=== PATIENT | female | born 1970 | race Two or more races ===

== ENCOUNTER 2024-10-25 08:04 | Emergency (ER) | payer MEDICAID, SELFPAY ==
[2024-10-25 08:22] VITALS: BP 143/70; PULSE 74; RESP 20; TEMP 36.7; O2SAT 100; BMI 38.7
--- NOTE | 2024-10-25 08:24 | XR_ITS ---
EXAMINATION: CT abdomen pelvis wo con ORDERING PROVIDER: KIESHA Roe HISTORY: Right flank pain x1 day. TECHNIQUE: Without intravenous or oral contrast, CT was used in the volumetric, helical imaging acquisition of the abdomen and pelvis with 2-D and 3-D reformats generated on a separate workstation and submitted for interpretation. Institutional dose reducing protocols were utilized. Evaluation of hollow viscus and solid viscera is limited secondary to lack of intravenous and oral contrast. RADIATION DOSE: DLP 1103 mGy-cm COMPARISON: 08/10/2017, CT abdomen pelvis. FINDINGS: LIVER: No focal lesion identified. Questionable micronodularity. BILIARY: Cholecystectomy clips. PANCREAS: Mild fatty atrophy. SPLEEN: Incidental anterior inferior splenule. ADRENAL GLANDS: Unremarkable. KIDNEYS: Mild bilateral perinephric fat stranding. Mild right pelvic caliectasis. Left greater than right renal atrophy. Significant left-sided cortical atrophy. No obstructive nephrolithiasis identified. URETERS: Nondilated. No ureterolithiasis seen. BLADDER: Antidependent air in the bladder. Trace fat stranding around the bladder. CT provides limited evaluation of the urinary bladder. HOLLOW VISCUS: Scattered colonic diverticula without surrounding inflammatory changes. Moderate colonic stool burden. Appendix nondilated. VASCULATURE: 2 right-sided renal arteries. Limited evaluation without contrast. Mild aortoiliac calcific atherosclerotic disease. Partially visualized cardiac leads. Heavy coronary artery calcific atherosclerotic disease. Unchanged mild fat stranding about the distal right ovarian vein. PELVIS: Pelvic phleboliths. LYMPH NODES: Limited evaluation without contrast. Grossly unremarkable. LUNG BASES: Scarring versus atelectasis partially evaluated along the minor fissure. BONES: Moderate degenerative changes with multilevel degenerative disc disease. Lower lumbar spine facet arthrosis. Multilevel vacuum disc phenomenon. ABDOMINAL WALL: Large fat filled umbilical hernia with 4.3 cm neck. Ventral lower abdominal/pelvic scar. IMPRESSION: 1. Fat stranding about the bilateral kidneys and bladder. Query urinary tract infection. 2. Small amount of antidependent air in the bladder. This could be from recent manipulation, infection, or other etiology. Recommend correlation with history and physical exam. 3. Mild right-sided hydronephrosis without obstructive stone identified. This could be from recently passed urolith. 4. Suggestion of micronodularity to the liver. Query underlying liver disease. 5. Colonic diverticulosis without CT findings for diverticulitis. 6. Large fat filled umbilical hernia.
--- NOTE | 2024-10-25 08:25 | PD.EDABDPN ---
ED Abdominal Pain RME/HPI General Chief Complaint: Hip Injury/Pain Stated complaint: SEVERE R) HIP PAIN X 2 DAYS Time seen by provider: 10/25/24 08:09 Arrival date/time: 10/25/24 08:04 54-year-old female with a history of hypertension, hyperlipidemia, type 2 diabetes presents to the emergency room with a chief complaint of right-sided flank pain and right lower abdominal pain x 2 days Source: patient Mode of arrival: ambulatory Limitations: no limitations Related Data Home Medications ?Medication ?Instructions ?Recorded ?Confirmed aspirin 81 mg chewable tablet 81 mg PO 1XD 02/17/24 02/17/24 evolocumab 140 mg/mL subcutaneous 140 mg subcut QWEEK 02/17/24 02/17/24 syringe (Repatha Syringe) finerenone 20 mg tablet (Kerendia) 20 mg PO QDAY 02/17/24 02/17/24 furosemide 40 mg tablet 40 mg PO 1XD 02/17/24 02/17/24 insulin glargine 100 unit/mL (3 50 unit subcut HS 02/17/24 02/17/24 mL) subcutaneous pen (Basaglar KwikPen U-100 Insulin) nitroglycerin 0.4 mg sublingual 0.4 mg buccal 1XD 02/17/24 02/17/24 tablet sacubitril 24 mg-valsartan 26 mg 1 tab PO BID 02/17/24 02/17/24 tablet (Entresto) sitagliptin phosphate 50 50 - 1,000 tab PO 2XD 02/17/24 02/17/24 mg-metformin 1,000 mg tablet (Janumet) Previous Rx's ?Medication ?Instructions ?Recorded amlodipine 5 mg tablet 10 mg (2 x 5 mg) PO QDAY #30 tabs 02/18/24 apixaban 2.5 mg tablet (Eliquis) 5 mg (2 x 2.5 mg) PO BID #60 tabs 02/18/24 atorvastatin 20 mg tablet 40 mg (2 x 20 mg) PO HS #30 tabs 02/18/24 carvedilol 3.125 mg tablet 3.125 mg PO BIDWM #60 tabs 02/18/24 Allergies Allergy/AdvReac Type Severity Reaction Status Date / Time Penicillins Allergy Severe Swelling Verified 10/25/24 08:11 Review of Systems Review of Systems Systems Reviewed: All systems reviewed, normal except as documented Constitutional Constitutional: Reports system reviewed and no additional complaints, except as documented, Denies fatigue, Denies fever(s), Denies headache(s) and Denies weakness Eyes Eyes: Reports system reviewed and no additional complaints, except as documented, Denies blurry vision and Denies change in vision ENT Ears, Nose, Mouth, and Throat: Reports system reviewed and no additional complaints, except as documented, Denies otalgia, Denies headache(s), Denies nasal congestion, Denies throat swelling and Denies vertigo Cardiovascular Cardiovascular: Reports system reviewed and no additional complaints, except as documented, Denies chest pain, Denies dyspnea and Denies dyspnea on exertion Respiratory Respiratory: Reports system reviewed and no additional complaints, except as documented, Denies chest congestion, Denies cough, Denies dyspnea, Denies dyspnea on exertion and Denies wheezing Gastrointestinal Gastrointestinal: Reports system reviewed and no additional complaints, except as documented, Reports abdominal pain, Reports cramping, Reports nausea and Denies vomiting Genitourinary Genitourinary: Reports system reviewed and no additional complaints, except as documented Musculoskeletal Musculoskeletal: Reports system reviewed and no additional complaints, except as documented and Denies back pain Integumentary/Breasts Skin/Breast: Reports system reviewed and no additional complaints, except as documented and Denies wounds Neurologic Neurologic: Reports system reviewed and no additional complaints, except as documented, Denies confusion, Denies headache(s), Denies lack of coordination, Denies vertigo and Denies weakness Psychiatric Psychiatric: Reports system reviewed and no additional complaints, except as documented, Denies anxiety, Denies confusion, Denies depression, Denies paranoia, Denies suicidal ideation and Denies tactile hallucinations Endocrine Endocrine: Reports system reviewed and no additional complaints, except as documented and Denies fatigue Hematologic/Lymphatic Hematologic/Lymphatic: Reports system reviewed and no additional complaints, except as documented and Denies lymphadenopathy Allergic/Immunologic Allergic/Immunologic: Reports system reviewed and no additional complaints, except as documented, Denies throat swelling, Denies urticaria and Denies wheezing Past Medical History Past Medical History NEUROLOGIC: Positive Peripheral Neuropathy; Negative Neurological Disorders or Seizures CARDIAC: Positive Cardiac Disorders, Hypercholesterolemia and Hypertension; Negative Congestive Heart Failure RESPIRATORY: Positive Pneumonia and Tuberculosis; Negative Chronic Obstructive Pulmonary Disease (COPD) or Asthma GASTROINTESTINAL: Positive Gall Bladder Disease, Gastroesophageal Reflux Disease and Obesity; Negative Gastrointestinal Disorders GENITOURINARY: Positive Renal Disease; Negative Genitourinary Disorders REPRODUCTIVE: Positive Previous Pregnancies; Negative Pelvic Inflammatory Disease MUSCULOSKELETAL: Positive Musculoskeletal Disorders and Arthritis ENDOCRINE: Positive Diabetes Mellitus Type 2; Negative Endocrine Disorders or Diabetes Mellitus Type 1 HEMATOLOGIC: Negative Blood Disorders or Sickle Cell Disease PSYCHO/SOCIAL: Positive Depression OTHER HISTORY: Negative Autoimmune Disease, Blood Transfusions, Blood Transfusion Reaction, Anesthesia Reactions or Cancer Family History FAMILY HISTORY: Negative Family Psychiatric Problems, Family Respiratory Disorders, Family Cardiac Disorders, Family Gastrointestinal Problems, Family Cancer, Family Surgery or Family Anesthesia Reaction Surgical History SURGICAL: Positive Coronary Stent, Pacemaker, Hysterectomy and Section Social History SMOKING STATUS: Never smoker SECOND HAND EXPOSURE: Yes ED Exam General Limitations: Present no limitations General appearance: Present alert and in no apparent distress Head Head exam: Present atraumatic Eye Eye exam: Present normal appearance, PERRL and EOMI ENT ENT exam: Present normal exam, normal oropharynx and mucous membranes moist Neck Neck exam: Present normal inspection, full ROM and trachea midline Chest Chest inspection: Present normal inspection and symmetric chest wall rise Respiratory Respiratory exam: Present normal lung sounds bilaterally Cardiovascular Cardiovascular exam: Present regular rate, normal rhythm and normal heart sounds Abdominal Exam Abdominal exam: Present soft, tenderness and normal bowel sounds; Absent distention, guarding, rebound or rigidity Abdominal tenderness: Present RLQ and moderate Extremities Exam Extremities exam: Present normal inspection and full ROM Back Exam Back exam: Present normal inspection, full ROM and CVA tenderness (R) Neurological Exam Neurological exam: Present alert, oriented X3 and CN II-XII intact Psychiatric Psychiatric exam: Present normal affect and normal mood Skin Skin exam: Present warm, dry, intact and normal color Course Quality Measures none Orders Category Date Time Status CT abdomen pelvis wo con Stat Exams 10/25/24 08:24 Ordered CBC Stat Lab 10/25/24 08:24 Ordered CMP [Comprehensive Metabolic Panel] Stat Lab 10/25/24 08:24 Ordered HCG Qualitative,Urine Stat Lab 10/25/24 08:24 Ordered Lipase Stat Lab 10/25/24 08:24 Ordered UA [Urinalysis] Stat Lab 10/25/24 08:24 Ordered Urine Culture Stat Lab 10/25/24 08:24 Ordered Ketorolac Inj [Toradol Inj] Med 10/25/24 08:24 Once 30 mg IM X1 ONE Ondansetron Odt [Zofran Odt] Med 10/25/24 08:24 Once 4 mg PO X1 ONE Vital Signs Vital signs: Vital Signs Temperature 98.1 F 10/25/24 08:22 Pulse Rate 74 10/25/24 08:22 Respiratory Rate 20 10/25/24 08:22 Blood Pressure 143/70 H 10/25/24 08:22 Pulse Oximetry (%) 100 10/25/24 08:22 Oxygen Delivery Method Room Air 10/25/24 08:22 O2 saturation 100% within normal limits Abdominal Pain MDM MDM Narrative MDM Narrative:: 54-year-old female with a history of hypertension, hyperlipidemia, type 2 diabetes presents to the emergency room with a chief complaint of right-sided flank pain and right lower abdominal pain x 2 days Patient data External records reviewed:: [facility] previous records Clinical information provided by:: patient Social determinants that could affect healthcare access:: none Patient has the following chronic illnesses:: Hypertension, hyperlipidemia, type 2 diabetes How is presenting disease/condition affected by chronic disease/condition?: uneffected by Evaluation data The following diagnostics were reviewed and interpreted by me:: lab results and radiology exam(s) Lab and/or radiology exams considered but not ordered:: Labs and radiology exams considered and ordered Interpretation Summary: Abdomen pelvis CT- Medications / Prescriptions Medications or Prescriptions considered but not ordered:: Medication given Medication administrations:: Medication given Consultations Consultation(s) initiated? (list below): No Diagnosis Differential diagnosis abdominal pain: abdominal pain, acute appendicitis, constipation, gastroenteritis and small bowel obstruction Admission Indicated Admission indicated?: not indicated Admission Request Was there a request for admission?: No Disposition Plan Disposition Plan: Discharge Discharge Attestation Discharge Attestation: The patient and all family members were given an opportunity to ask questions and understood the discharge instructions. Discharge instructions specifically effects, indications for sooner follow up or return to the emergency department, and the expected course of current diagnosis. Patient condition: Stable Discharge Plan Prescriptions/Referrals Prescriptions/Med Rec: No Action furosemide 40 mg tablet 40 mg PO 1XD nitroglycerin 0.4 mg Tablet, Sublingual 0.4 mg BUCCAL 1XD aspirin 81 mg tablet,chewable 81 mg PO 1XD Janumet 50-1,000 mg tablet 50 - 1,000 tab PO 2XD Entresto 24-26 mg Tablet 1 tab PO BID insulin glargine [Basaglar KwikPen U-100 Insulin] 100 unit/mL (3 mL) insulin pen 50 unit SUBCUT HS Kerendia 20 mg tablet 20 mg PO QDAY Patient Comments: TOME 1 TABLETA POR V A ORAL TODOS LOS D Repatha Syringe 140 mg/mL syringe 140 mg SUBCUT QWEEK atorvastatin 20 mg Tablet 40 mg PO HS Qty: 30 0RF amlodipine 5 mg Tablet 10 mg PO QDAY Qty: 30 0RF carvedilol 3.125 mg Tablet 3.125 mg PO BIDWM Qty: 60 0RF Eliquis 2.5 mg Tablet 5 mg PO BID Qty: 60 0RF Patient/Caregiver Discharge Instructions Print Language: Yakut
[2024-10-25] MEDS: ONDANSETRON ODT 4 MG TABRAP PO (08:53)
[2024-10-25] MEDS: HYDROcodone/APAP 5/325 TABLET 1 TAB PO (09:00)
--- NOTE | 2024-10-25 09:11 | PD.EDRME ---
Rapid Medical Screening Exam RME Arrival date/time: 10/25/24 08:04 54-year-old female with a history of hypertension, hyperlipidemia, type 2 diabetes presents to the emergency room with a chief complaint of right-sided flank pain and right lower abdominal pain x 2 days I have greeted and performed a focused initial assessment of this patient. A comprehensive ED assessment and evaluation of the patient, analysis of all test results, and completion of the medical decision making process will be conducted by additional ED providers. Chief Complaint: Hip Injury/Pain Time Seen by Provider: 10/25/24 08:09 Vital signs: Vital Signs Temperature 98.1 F 10/25/24 08:22 Pulse Rate 74 10/25/24 08:22 Respiratory Rate 20 10/25/24 08:22 Blood Pressure 143/70 H 10/25/24 08:22 Pulse Oximetry (%) 100 10/25/24 08:22 Oxygen Delivery Method Room Air 10/25/24 08:22 Vital signs reviewed by provider: Yes
[2024-10-25 09:14] LABS: Basophils % (Auto) 0 % (0-2.5); Eosinophils # (Auto) 0.1 Thou/mm3 (0.0-0.5); Eosinophils % (Auto) 2 % (0-10); Hematocrit 34.4 % (36.0-46.0); Hemoglobin 11.6 g/dL (12.0-16.0); Immature Granulocytes % (Auto) 0 % (0-0); Immature Granulocytes Auto 0.02 Thou/mm3 (0.00-0.00); Lymphocytes # (Auto) 2.8 Thou/mm3 (1.0-4.8); Lymphocytes % (Auto) 33 % (10-50); Mean Corpuscular HGB Conc 33.7 g/dl (31.0-37.0); Mean Corpuscular Volume 80 fL (80-100); Monocytes # (Auto) 0.5 Thou/mm3 (0.0-0.8); Monocytes % (Auto) 6 % (0-12); Neutrophils # (Auto) 4.8 Thou/mm3 (1.8-7.7); Neutrophils % (Auto) 58 % (37-80); Nucleated Red Blood Cell % 0 /100 WBC (0); Platelet Count 260 Thou/mm3 (140-440); RDW Standard Deviation 37.1 fL (36.4-46.3); White Blood Count 8.3 Thou/mm3 (3.6-11.0)
[2024-10-25 09:39] LABS: Alanine Aminotransferase 12 U/L (10-49); Albumin, Serum 4.1 gm/dL (3.5-5.0); Albumin/Globulin Ratio 1.4 (1.2-2.2); Alkaline Phosphatase 119 U/L (46-116); Anion Gap 11 (7-16); Aspartate Amino Transferase 11 U/L (0-34); BUN/Creatinine Ratio 22 Ratio (12-20); Bilirubin,Total 0.5 mg/dL (0.3-1.2); Blood Urea Nitrogen 29 mg/dL (9-23); Calcium 9.6 mg/dL (8.3-10.6); Calcium (Corrected) 9.6 mg/dL (8.5-10.1); Carbon Dioxide 23.5 mMol/L (20.0-31.0); Chloride 100 mMol/L (98-107); Creatinine (Component) 1.3 mg/dL (0.6-1.3); Estimated Creatinine Clearance 61.1 mL/min (>60); Globulin 2.9 gm/dL (2.3-3.5); Lipase 67 U/L (12-53); Osmolality,Calculated 292 (275-295); Potassium 4.4 mMol/L (3.4-5.1); Sodium 134 mMol/L (136-145); eGFR 49 See Note
[2024-10-25 09:40] LABS: Collection Type, Urine Clean Catch
[2024-10-25 09:49] LABS: Glucose 430 mg/dL (74-106)
[2024-10-25 09:52] LABS: Bacteria,Urine Rare; Bilirubin,Urine Negative (Negative); Blood,Urine Trace (Negative); Clarity,Urine Turbid (Clear/Hazy); Color,Urine Lt-Yellow (Lt Yel-Yel); Glucose, Urine 4+ (Negative); Ketones,Urine Negative (Negative); Leukocyte Esterase,Urine Positive (Negative); Nitrite,Urine Negative (Negative); Protein,Urine 2+ (Neg - Trace); RBC,Urine 7 /hpf (0-3); Specific Gravity,Urine 1.022 (1.001-1.035); Squamous Epithelial Cell,Urine < 1 /hpf (0-5); Urobilinogen,Urine Negative mg/dL (0.0-1.0); WBC,Urine 81 /hpf (0-5)
[2024-10-25 09:53] LABS: HCG Qualitative,Urine Negative
--- NOTE | 2024-10-25 14:22 | PD.EDABDPN ---
ED Abdominal Pain RME/HPI General Chief Complaint: Hip Injury/Pain Stated complaint: SEVERE R) HIP PAIN X 2 DAYS Time seen by provider: 10/25/24 08:09 Arrival date/time: 10/25/24 08:04 RME / HPI RME / HPI narrative: 10/25/24 08:04 54-year-old female with a history of hypertension, hyperlipidemia, type 2 diabetes presents to the emergency room with a chief complaint of right-sided flank pain and right lower abdominal pain x 2 days I have greeted and performed a focused initial assessment of this patient. A comprehensive ED assessment and evaluation of the patient, analysis of all test results, and completion of the medical decision making process will be conducted by additional ED providers. DR. RAMÍREZ MAIN ED EVALUATION: 54 year old female with past medical history significant for hypertension, hyperlipidemia, type 2 diabetes mellitus, ID in 2019, subsequent CAD status post stenting back in 2019, pacemaker, history of PE on Eliquis presents to the Emergency Department with complaint of right flank pain onset 2 days. Pain is described as aching and rated moderate in severity. No other symptoms reported at this time. Related Data Home Medications ?Medication ?Instructions ?Recorded ?Confirmed aspirin 81 mg chewable tablet 81 mg PO 1XD 02/17/24 02/17/24 evolocumab 140 mg/mL subcutaneous 140 mg subcut QWEEK 02/17/24 02/17/24 syringe (Repatha Syringe) finerenone 20 mg tablet (Kerendia) 20 mg PO QDAY 02/17/24 02/17/24 furosemide 40 mg tablet 40 mg PO 1XD 02/17/24 02/17/24 insulin glargine 100 unit/mL (3 50 unit subcut HS 02/17/24 02/17/24 mL) subcutaneous pen (Basaglar KwikPen U-100 Insulin) nitroglycerin 0.4 mg sublingual 0.4 mg buccal 1XD 02/17/24 02/17/24 tablet sacubitril 24 mg-valsartan 26 mg 1 tab PO BID 02/17/24 02/17/24 tablet (Entresto) sitagliptin phosphate 50 50 - 1,000 tab PO 2XD 02/17/24 02/17/24 mg-metformin 1,000 mg tablet (Janumet) Previous Rx's ?Medication ?Instructions ?Recorded amlodipine 5 mg tablet 10 mg (2 x 5 mg) PO QDAY #30 tabs 02/18/24 apixaban 2.5 mg tablet (Eliquis) 5 mg (2 x 2.5 mg) PO BID #60 tabs 02/18/24 atorvastatin 20 mg tablet 40 mg (2 x 20 mg) PO HS #30 tabs 02/18/24 carvedilol 3.125 mg tablet 3.125 mg PO BIDWM #60 tabs 02/18/24 cephalexin 500 mg capsule 500 mg PO TID #20 caps 10/25/24 Allergies Allergy/AdvReac Type Severity Reaction Status Date / Time Penicillins Allergy Severe Swelling Verified 10/25/24 08:11 Review of Systems Review of Systems Systems Reviewed: All systems reviewed, normal except as documented Narrative Review of Systems: GEN: No fever, no chills, no weight loss EYES: No discharge, no visual changes, no pain HEENT: No ear pain, no congestion, no sore throat PULM: No shortness of breath, no cough, no congestion CV: No chest pain, no dyspnea on exertion, no palpitations GI: No nausea, no vomiting, no diarrhea, + right flank pain, no constipation : No frequency, no urgency and no dysuria MUSC/SKEL: No joint pain, no back pain SKIN: No rash PSYCH: No hallucinations, no depression HEME/LYMPH: No easy bleeding or bruising tendencies NEURO: No weakness, no headache Past Medical History Past Medical History NEUROLOGIC: Positive Peripheral Neuropathy CARDIAC: Positive Cardiac Disorders, Hypercholesterolemia and Hypertension RESPIRATORY: Positive Pneumonia and Tuberculosis GASTROINTESTINAL: Positive Gall Bladder Disease, Gastroesophageal Reflux Disease and Obesity GENITOURINARY: Positive Renal Disease REPRODUCTIVE: Positive Previous Pregnancies MUSCULOSKELETAL: Positive Musculoskeletal Disorders and Arthritis ENDOCRINE: Positive Diabetes Mellitus Type 2 PSYCHO/SOCIAL: Positive Depression Surgical History SURGICAL: Positive Coronary Stent, Pacemaker, Hysterectomy and Section Social History SMOKING STATUS: Never smoker SECOND HAND EXPOSURE: Yes SUBSTANCE USE: does not use ALCOHOL: Never ED Exam Narrative Physical exam: GENERAL APPEARANCE: alert and oriented x 4, well-developed, well-nourished, appears in pain VITALS: All vitals were reviewed and the pulse ox is 100% on room air, which is normal according to my interpretation. HEENT: Normocephalic, atraumatic; pupils equal, round, reactive to light; EOMI; mucous membranes pink, moist; oropharynx clear NECK: Supple LUNGS: CTABL; no wheezes, no rales, no rhonchi HEART: Regular rate, regular rhythm; normal S1, S2; no murmurs ABDOMEN: non distended; normal BS; soft, no tenderness, no guarding, no rebound; no masses, no organomegaly, no hernia BACK: there right CVA tenderness EXTREMITIES: atraumatic; no edema NEUROLOGIC: awake; alert and oriented x4; cranial nerves II-XII grossly intact; no focal sensory or motor deficits PSYCHIATRIC: appropriate mood and affect SKIN: warm, dry, normal color; no rashes Course Course Course Narrative: 1530: Patient brought to a room and just saw and evaluated the patient. Quality Measures none Orders Category Date Time Status Bedside Blood Glucose NOW Care 10/25/24 15:[address] abdomen pelvis wo con Stat Exams 10/25/24 08:24 Completed CBC Stat Lab 10/25/24 08:45 Completed CMP [Comprehensive Metabolic Panel] Stat Lab 10/25/24 08:45 Completed HCG Qualitative,Urine Stat Lab 10/25/24 09:16 Completed Lipase Stat Lab 10/25/24 08:45 Completed Troponin I Stat Lab 10/25/24 08:45 Completed Troponin I Stat Lab 10/25/24 18:20 Completed UA [Urinalysis] Stat Lab 10/25/24 09:16 Completed Urine Culture Stat Lab 10/25/24 09:16 Received HYDROcodone*/APAP 5/325 [[place] 5/325] Med 10/25/24 08:55 Discontinued 1 tab PO X1 ONE Ketorolac Inj [Toradol Inj] Med 10/25/24 08:24 Discontinued 30 mg IM X1 ONE Morphine Inj Med 10/25/24 15:33 Discontinued 5 mg IVP X1 ONE Ondansetron Inj [Zofran Inj] Med 10/25/24 15:33 Discontinued 4 mg IV X1 ONE Ondansetron Odt [Zofran Odt] Med 10/25/24 08:24 Discontinued 4 mg PO X1 ONE Sodium Chloride 0.9% 1000 ml [Ns] 1,000 ml Med 10/25/24 15:32 Discontinued IV 999 mls/hr Sodium Chloride 0.9% 1000 ml [Ns] 1,000 ml Med 10/25/24 17:57 Discontinued IV 999 mls/hr Sodium Chloride 0.9% 1000 ml [Ns] 1,000 ml Med 10/25/24 17:59 Discontinued IV 999 mls/hr cefTRIAXone [Rocephin] 1,000 mg Med 10/25/24 15:32 Discontinued SODIUM CHLORIDE 0.9% (Popper) [Ns 0.9% (P)] 50 ml IV X1 Vital Signs Vital signs: Vital Signs Temperature 98.1 F 10/25/24 08:22 Pulse Rate 74 10/25/24 08:22 Respiratory Rate 20 10/25/24 08:22 Blood Pressure 143/70 H 10/25/24 08:22 Pulse Oximetry (%) 100 10/25/24 08:22 Oxygen Delivery Method Room Air 10/25/24 08:22 Abdominal Pain MDM MDM Narrative MDM Narrative:: I, Carmencita Barrett am scribing for and in the presence of Dr. Ramírez. Patient data External records reviewed:: [facility] previous records (Reviewed last admission discharge dated 02/18/24, patient admitted for the following: Chest pain) Clinical information provided by:: patient Social determinants that could affect healthcare access:: none Patient has the following chronic illnesses:: hypertension, hyperlipidemia, type 2 diabetes mellitus, ID in 2019, subsequent CAD status post stenting back in 2019, pacemaker, history of PE on Eliquis How is presenting disease/condition affected by chronic disease/condition?: exacerbated by Evaluation data The following diagnostics were reviewed and interpreted by me:: lab results and radiology exam(s) Lab and/or radiology exams considered but not ordered:: none Interpretation Summary: Procedure(s): CT abdomen pelvis wo con Accession Number(s): [id number] cc: Imer Saunders MD; Wilmer Hurt; Akira Cullen PA-C~ EXAMINATION: CT abdomen pelvis wo con ORDERING PROVIDER: KIESHA Roe HISTORY: Right flank pain x1 day. TECHNIQUE: Without intravenous or oral contrast, CT was used in the volumetric, helical imaging acquisition of the abdomen and pelvis with 2-D and 3-D reformats generated on a separate workstation and submitted for interpretation. Institutional dose reducing protocols were utilized. Evaluation of hollow viscus and solid viscera is limited secondary to lack of intravenous and oral contrast. RADIATION DOSE: DLP 1103 mGy-cm COMPARISON: 08/10/2017, CT abdomen pelvis. FINDINGS: LIVER: No focal lesion identified. Questionable micronodularity. BILIARY: Cholecystectomy clips. PANCREAS: Mild fatty atrophy. SPLEEN: Incidental anterior inferior splenule. ADRENAL GLANDS: Unremarkable. KIDNEYS: Mild bilateral perinephric fat stranding. Mild right pelvic caliectasis. Left greater than right renal atrophy. Significant left-sided cortical atrophy. No obstructive nephrolithiasis identified. URETERS: Nondilated. No ureterolithiasis seen. BLADDER: Antidependent air in the bladder. Trace fat stranding around the bladder. CT provides limited evaluation of the urinary bladder. HOLLOW VISCUS: Scattered colonic diverticula without surrounding inflammatory changes. Moderate colonic stool burden. Appendix nondilated. VASCULATURE: 2 right-sided renal arteries. Limited evaluation without contrast. Mild aortoiliac calcific atherosclerotic disease. Partially visualized cardiac leads. Heavy coronary artery calcific atherosclerotic disease. Unchanged mild fat stranding about the distal right ovarian vein. PELVIS: Pelvic phleboliths. LYMPH NODES: Limited evaluation without contrast. Grossly unremarkable. LUNG BASES: Scarring versus atelectasis partially evaluated along the minor fissure. BONES: Moderate degenerative changes with multilevel degenerative disc disease. Lower lumbar spine facet arthrosis. Multilevel vacuum disc phenomenon. ABDOMINAL WALL: Large fat filled umbilical hernia with 4.3 cm neck. Ventral lower abdominal/pelvic scar. IMPRESSION: 1. Fat stranding about the bilateral kidneys and bladder. Query urinary tract infection. 2. Small amount of antidependent air in the bladder. This could be from recent manipulation, infection, or other etiology. Recommend correlation with history and physical exam. 3. Mild right-sided hydronephrosis without obstructive stone identified. This could be from recently passed urolith. 4. Suggestion of micronodularity to the liver. Query underlying liver disease. 5. Colonic diverticulosis without CT findings for diverticulitis. 6. Large fat filled umbilical hernia. Dictated By: Imer Saunders MD Medications / Prescriptions Medications or Prescriptions considered but not ordered:: none Medication administrations:: Medication Administration History Discontinued Medications Hydrocodone Bitart/Acetaminophen (Hydrocodone/Apap 5/325 Tablet) 1 tab PO X1 ONE Stop: 10/25/24 08:56 Last Admin: 10/25/24 09:00 Dose: 1 tab Documented By: DO Sodium Chloride (Ns) 1,000 mls @ 999 mls/hr IV .Q1H1M ONE Stop: 10/25/24 16:32 Last Infusion: 10/25/24 19:29 Dose: Infused Documented By: Admin: 10/25/24 16:42 Dose: 999 mls/hr Documented By: LIGIA Ceftriaxone Sodium 1,000 mg/ (Sodium Chloride) 50 mls @ 100 mls/hr IV X1 ONE Stop: 10/25/24 16:01 Last Infusion: 10/25/24 19:29 Dose: Infused Documented By: Admin: 10/25/24 16:42 Dose: 100 mls/hr Documented By: LIGIA Sodium Chloride (Ns) 1,000 mls @ 999 mls/hr IV .Q1H1M ONE Stop: 10/25/24 18:57 Last Infusion: 10/25/24 20:49 Dose: Infused Documented By: Admin: 10/25/24 18:34 Dose: 999 mls/hr Documented By: LIGIA Sodium Chloride (Ns) 1,000 mls @ 999 mls/hr IV .Q1H1M ONE Stop: 10/25/24 18:59 Last Infusion: 10/25/24 20:50 Dose: Infused Documented By: Admin: 10/25/24 18:34 Dose: 999 mls/hr Documented By: LIGIA Ketorolac Tromethamine (Ketorolac Inj 60 Mg/2 Ml Vial) 30 mg IM X1 ONE Stop: 10/25/24 08:25 Last Admin: 10/25/24 08:58 Dose: Not Given Documented By: Non-Admin Reason: Patient Refused Morphine Sulfate (Morphine Sulf Inj 10 Mg/Ml Vial) 5 mg IVP X1 ONE Stop: 10/25/24 15:34 Last Admin: 10/25/24 16:41 Dose: 5 mg Documented By: LIGIA Ondansetron HCl (Ondansetron Odt 4 Mg Tabrap) 4 mg PO X1 ONE; Protocol Stop: 10/25/24 08:25 Last Admin: 10/25/24 08:53 Dose: 4 mg Documented By: Ondansetron HCl (Ondansetron Inj 2 Mg/Ml Inj 2 Ml) 4 mg IV X1 ONE Stop: 10/25/24 15:34 Last Admin: 10/25/24 16:40 Dose: 4 mg Documented By: LIGIA see above Consultations Consultation(s) initiated? (list below): No Diagnosis Differential diagnosis abdominal pain: abdominal pain, calculus of kidney and pancreatitis Most likely diagnosis given after review of the tests above:: UTI Pyelonephritis Admission Indicated Admission indicated?: not indicated Admission Request Was there a request for admission?: No Disposition Plan Disposition Plan: Discharge Discharge Attestation Discharge Attestation: The patient and all family members were given an opportunity to ask questions and understood the discharge instructions. Discharge instructions specifically effects, indications for sooner follow up or return to the emergency department, and the expected course of current diagnosis. Patient condition: Stable Discharge Plan Plan Patient Disposition: HOME (Self Care) Prescriptions/Referrals Prescriptions/Med Rec: New cephalexin 500 mg capsule 500 mg PO TID Qty: 20 0RF No Action furosemide 40 mg tablet 40 mg PO 1XD nitroglycerin 0.4 mg Tablet, Sublingual 0.4 mg BUCCAL 1XD aspirin 81 mg tablet,chewable 81 mg PO 1XD Janumet 50-1,000 mg tablet 50 - 1,000 tab PO 2XD Entresto 24-26 mg Tablet 1 tab PO BID insulin glargine [Basaglar KwikPen U-100 Insulin] 100 unit/mL (3 mL) insulin pen 50 unit SUBCUT HS Kerendia 20 mg tablet 20 mg PO QDAY Patient Comments: TOME 1 TABLETA POR V A ORAL TODOS LOS D Repatha Syringe 140 mg/mL syringe 140 mg SUBCUT QWEEK atorvastatin 20 mg Tablet 40 mg PO HS Qty: 30 0RF amlodipine 5 mg Tablet 10 mg PO QDAY Qty: 30 0RF carvedilol 3.125 mg Tablet 3.125 mg PO BIDWM Qty: 60 0RF Eliquis 2.5 mg Tablet 5 mg PO BID Qty: 60 0RF Referrals: Akira Cullen PA-C [Primary Care Provider] - In 1 week Problem List Clinical Impression: UTI (urinary tract infection), Pyelonephritis Patient/Caregiver Discharge Instructions Education Materials: ED Pyelonephritis, Female (Adult), ED CYSTITIS Female Adult Print Language: [place] Stand Alone Forms: [employer] Award Info., Patient Portal Info Letter
[2024-10-25 15:31] VITALS: BP 131/82; PULSE 76; RESP 20; TEMP 36.9; O2SAT 100
[2024-10-25] MEDS: ONDANSETRON INJ 2 MG/ML INJ 2 ML 4 MG IV (16:40)
[2024-10-25] MEDS: MORPHINE SULF INJ 10 MG/ML VIAL 5 MG IVP (16:41)
[2024-10-25] MEDS: SODIUM CHLORIDE 0.9% 1000 ML 1,000 ML 999 ML IV ×3 (16:42→18:34)
[2024-10-25] MEDS: cefTRIAXone 1,000 MG in SODIUM CHLORIDE 0.9% (Popper) 50 ML 100 MG IV (16:42)
[2024-10-25 17:43] VITALS: BP 127/80; PULSE 74; RESP 18; TEMP 36.9; O2SAT 99
[2024-10-25 18:59] LABS: Troponin I < 0.020 ng/mL (0.0-0.045)
[2024-10-25 19:00] VITALS: BP 160/94; PULSE 76; RESP 14; TEMP 36.3; O2SAT 99
[2024-10-25 19:49] LABS: Troponin I < 0.020 ng/mL (0.0-0.045)
[2024-10-25 20:54] VITALS: BP 156/80; PULSE 75; RESP 15; TEMP 36.7; O2SAT 95
[2024-10-25 20:57] VITALS: BP 156/80; PULSE 77; RESP 15; TEMP 36.7; O2SAT 95
== END 2024-10-25 21:09 | disposition home or self-care (01) ==
PROVIDERS: Nurse Practitioner Family; Emergency Provider Emergency Medicine; PCP Physician Assistant
DX: N12 Tubulo-interstitial nephritis, not specified as acute or chronic (principal); K57.30 Diverticulosis of large intestine without perforation or abscess without bleeding; K42.9 Umbilical hernia without obstruction or gangrene
CPT/HCPCS: 36415; 74176; 80053; 81001; 81025; 83690; 84484; 85025; 87077; 87086; 87186; 96374; 96375; 99284; J0696; J2270; J2405; J7030; J7050; Q0162; A9270

== ENCOUNTER 2024-11-30 15:47 | Emergency (ER) | payer MEDICAID, SELFPAY ==
[2024-11-30 15:48] VITALS: BMI 41.1
--- NOTE | 2024-11-30 15:54 | EKG_ITS ---
[facility] Test Date: 2024-11-30 Pat Name: OLIMPIA PRIEST Department: Room: - Gender: Female [employer]: : [id number] Requested By: ED Temporary Provider Order Number: [id number] Reading MD: ED Temporary Provider Measurements Intervals [place] Rate: 89 P: 29 TN: 169 QRS: 15 QRSD: 93 T: 99 QT: 372 QTc: 455 Interpretive Statements SINUS RHYTHM ABNORMAL QRS-T ANGLE [QRS-T AXIS DIFFERENCE > 60] Compared to ECG 02/17/2024 12:46:07 No significant changes /store/S0/[id number]/ecg/[id number].pdf
[2024-11-30 16:09] VITALS: BP 149/67; PULSE 88; RESP 18; TEMP 37.2; O2SAT 99
[2024-11-30] MEDS: MG HYD/AL HYD/SIME (Maalox Reg) SUSP 30 ML UDC PO (16:55)
[2024-11-30] MEDS: ONDANSETRON INJ 2 MG/ML INJ 2 ML 4 MG IM (16:55)
[2024-11-30] MEDS: MORPHINE SULF INJ 10 MG/ML VIAL 5 MG IM (16:55)
--- NOTE | 2024-11-30 17:22 | EDNOTE_ITS ---
ED Dental RME/HPI General Chief complaint: Headache Stated complaint: HEADACHE, DENTAL PAIN. Time Seen by Provider: 11/30/24 16:31 Source: patient Arrival date/time: 11/30/24 15:47 This is a 54-year-old female presents to the emergency department with complaints of right upper dental pain. Patient reports she has history of chronic dental pain for 2 years. She has been seeing her dentist the last couple months is pending right upper molar extractions. She does report going to the dentist the last 2 days for a dental block due to pain. She is currently on antibiotics. She reports she has been taking ibuprofen however has no relief. Here today requesting pain shot for dental pain. Denies fever, chills no dyspnea no chest pain. She does report history of hypertension, hyperlipidemia, diabetes, CAD. Limitations: no limitations Related Data Home Medications ?Medication ?Instructions ?Recorded ?Confirmed aspirin 81 mg chewable tablet 81 mg PO 1XD 02/17/24 evolocumab 140 mg/mL subcutaneous 140 mg subcut QWEEK 02/17/24 02/17/24 syringe (Repatha Syringe) finerenone 20 mg tablet (Kerendia) 20 mg PO QDAY 02/1602/17/24 furosemide 40 mg tablet 40 mg PO 1XD 02/17/24 insulin glargine 100 unit/mL (3 50 unit subcut HS 12/0702/17/24 mL) subcutaneous pen (Basaglar KwikPen U-100 Insulin) nitroglycerin 0.4 mg sublingual 0.4 mg buccal 1XD 12/0702/17/24 tablet sacubitril 24 mg-valsartan 26 mg 1 tab PO BID 02/17/24 02/17/24 tablet (Entresto) sitagliptin phosphate 50 50 - 1,000 tab PO 2XD 02/17/24 mg-metformin 1,000 mg tablet (Janumet) Previous Rx's ?Medication ?Instructions ?Recorded amlodipine 5 mg tablet 10 mg (2 x 5 mg) PO QDAY #30 tabs 02/18/24 apixaban 2.5 mg tablet (Eliquis) 5 mg (2 x 2.5 mg) PO BID #60 tabs 02/18/24 atorvastatin 20 mg tablet 40 mg (2 x 20 mg) PO HS #30 tabs 02/18/24 carvedilol 3.125 mg tablet 3.125 mg PO BIDWM #60 tabs 02/18/24 cephalexin 500 mg capsule 500 mg PO TID #20 caps 10/25 tramadol 50 mg tablet 50 mg PO Q8H PRN pain #14 ta bs 11/30/24 Allergies Allergy/AdvReac Type Severity Reaction Status Date / Time Penicillins Allergy Severe Swelling Verified 11/30/24 15:51 Review of Systems Review of Systems Systems Reviewed: All systems reviewed, normal except as documented Narrative Review of Systems: Gen: No fever, no chills, no weight loss EYES: No discharge, no visual changes, no pain HEENT: No ear pain, no congestion, no sore throat, +right upper dental pain PULM: No shortness of breath, no cough, no congestion CV: No chest pain, no dyspnea on exertion, no palpitations GI: No nausea, no vomiting, no diarrhea, no pain, no constipation : No frequency, no urgency, no dysuria Musc/skel: No joint pain, no back pain Skin: No rash Psyc: No hallucinations, no depression Heme/Lymph: No easy bleeding or bruising tendencies Neuro: No weakness, no headache ED Exam Narrative Physical exam: 54y f appear to be in distress due to pain . General Limitations: Present no limitations General appearance: Present alert, in no apparent distress and in distress Head Head exam: Present atraumatic Eye Eye exam: Present normal appearance, PERRL and EOMI ENT ENT exam: Present normal oropharynx and mucous membranes moist Expanded ENT Exam External ear exam: Present normal external inspection Nasal speculum exam: Bilateral: normal Mouth exam: Present normal external inspection Teeth exam: Present dental caries and dental tenderness # (#14,15,16) Throat exam: Present normal inspection Neck Neck exam: Present normal inspection, full ROM and trachea midline Chest Chest inspection: Present normal inspection and symmetric chest wall rise Respiratory Respiratory exam: Present normal lung sounds bilaterally Cardiovascular Cardiovascular exam: Present regular rate, normal rhythm and normal heart sounds Abdominal Exam Abdominal exam: Present soft and normal bowel sounds Extremities Exam Extremities exam: Present normal inspection and full ROM Back Exam Back exam: Present normal inspection and full ROM Neurological Exam Neurological exam: Present alert, oriented X3 and CN II-XII intact Psychiatric Psychiatric exam: Present normal affect and normal mood Skin Skin exam: Present warm, dry, intact and normal color Course Quality Measures none Orders Category Date Time Status EKG (ED ONLY) *Do not use* NOW Care 11/30/24 15:54 Completed EKG (ED Only) Stat Exams 11/30/24 15:54 Draft Morphine Inj Med 11/30/24 16:41 Discontinued 5 mg IM X1 ONE Ondansetron Inj [Zofran Inj] Med 11/30/24 16:41 Discontinued 4 mg IM X1 ONE mg Hyd/Al Hyd/Floridalma Susp [Maalox Susp] Med 11/30/24 16:42 Discontinued 30 ml PO X1 ONE Vital Signs Vital signs: Vital Signs Temperature 99 F 11/30/24 16:09 Pulse Rate 88 11/30/24 16:09 Respiratory Rate 18 11/30/24 16:09 Blood Pressure 149/67 H 11/30/24 16:09 Pulse Oximetry (%) 99 11/30/24 16:09 Oxygen Delivery Method Room Air 11/30/24 16:09 Dental / Oral MDM Narrative MDM Narrative:: 54-year-old female evaluated in the emergency department for dental caries dental pain. It does not appear for her to have a abscess. No fever no chills patient is currently antibiotics that were given by her dentist. Due to her pain I will give her a shot of morphine IM. Patient has a follow-up appointment with her dentist. A couple tabs of tramadol will be given for outpatient. Strict ER precautions given if any worsening symptoms change in condition or new symptoms arise. Patient data External records reviewed:: [facility] previous records Clinical information provided by:: patient Social determinants that could affect healthcare access:: none Patient has the following chronic illnesses:: yes see hpi How is presenting disease/condition affected by chronic disease/condition?: uneffected by Evaluation data The following diagnostics were reviewed and interpreted by me:: other (specify) Lab and/or radiology exams considered but not ordered:: no Interpretation Summary: n/a Medications / Prescriptions Medications or Prescriptions considered but not ordered:: yes Medication administrations:: Medication Administration History Discontinued Medications Al Hydrox/Mg Hydrox/Simethicone (Mg Hyd/Al Hyd/Floridalma (Maalox Reg) Susp 30 Ml Udc) 30 ml PO X1 ONE Stop: 11/30/24 16:43 Last Admin: 11/30/24 16:55 Dose: 30 ml Documented By: OA Morphine Sulfate (Morphine Sulf Inj 10 Mg/Ml Vial) 5 mg IM X1 ONE Stop: 11/30/24 16:42 Last Admin: 11/30/24 16:55 Dose: 5 mg Documented By: OA Ondansetron HCl (Ondansetron Inj 2 Mg/Ml Inj 2 Ml) 4 mg IM X1 ONE; Protocol Stop: 11/30/24 16:42 Last Admin: 11/30/24 16:55 Dose: 4 mg Documented By: OA All medications administered and effective Consultations Consultation(s) initiated? (list below): No Diagnosis Dental Differential Diagnosis: gingival abscess, dental caries, toothache, fracture of tooth and aphthous ulcer Most likely diagnosis given after review of the tests above:: Dental caries, toothache Admission Indicated Admission indicated?: not indicated Admission Request Was there a request for admission?: No Disposition Plan Disposition Plan: Discharge Discharge Attestation Discharge Attestation: The patient and all family members were given an opportunity to ask questions and understood the discharge instructions. Discharge instructions specifically effects, indications for sooner follow up or return to the emergency department, and the expected course of current diagnosis. Patient condition: Stable Discharge Plan Plan Patient Disposition: HOME (Self Care) Patient condition on transfer: Stable Prescriptions/Referrals Prescriptions/Med Rec: New tramadol 50 mg tablet 50 mg PO Q8H PRN (Reason: pain) Qty: 14 0RF No Action furosemide 40 mg tablet 40 mg PO 1XD nitroglycerin 0.4 mg Tablet, Sublingual 0.4 mg BUCCAL 1XD aspirin 81 mg tablet,chewable 81 mg PO 1XD Janumet 50-1,000 mg tablet 50 - 1,000 tab PO 2XD Entresto 24-26 mg Tablet 1 tab PO BID insulin glargine [Basaglar KwikPen U-100 Insulin] 100 unit/mL (3 mL) insulin pen 50 unit SUBCUT HS Kerendia 20 mg tablet 20 mg PO QDAY Patient Comments: TOME 1 TABLETA POR V A ORAL TODOS LOS D Repatha Syringe 140 mg/mL syringe 140 mg SUBCUT QWEEK atorvastatin 20 mg Tablet 40 mg PO HS Qty: 30 0RF amlodipine 5 mg Tablet 10 mg PO QDAY Qty: 30 0RF carvedilol 3.125 mg Tablet 3.125 mg PO BIDWM Qty: 60 0RF Eliquis 2.5 mg Tablet 5 mg PO BID Qty: 60 0RF cephalexin 500 mg capsule 500 mg PO TID Qty: 20 0RF Problem List Clinical Impression: Chronic dental pain Patient/Caregiver Discharge Instructions Discharge Activity: activity as tolerated Education Materials: ED Dental Pain, ED Pain Management: Chronic Additional Instructions: You were treated today for your chronic dental pain please follow-up with your primary doctor and dentist for follow-up care. Continue antibiotics as directed. Return to the emergency department there is any worsening symptoms or condition Print Language: Kazakh Stand Alone Forms: [employer] Award Info., Patient Portal Info Letter PA/[employer] PROFESSOR Supervising Physician PA/[employer]UD[employer] PROFESSOR Supervising Physician: Dr Bejarano
== END 2024-11-30 18:09 | disposition home or self-care (01) ==
LOC: SERX 18:17
PROVIDERS: Emergency Provider Emergency Medicine
DX: K08.89 Other specified disorders of teeth and supporting structures (principal); G89.29 Other chronic pain; R94.31 Abnormal electrocardiogram [ECG] [EKG]; I10 Essential (primary) hypertension
CPT/HCPCS: 93005; 96372; 99284; J2270; J2405; A9270

== ENCOUNTER 2025-05-16 04:52 | Emergency (ER) | payer MEDICAID, SELFPAY ==
[2025-05-16 04:53] VITALS: BMI 28.2
[2025-05-16 04:54] VITALS: BP 180/94; PULSE 79; RESP 19; TEMP 36.4; O2SAT 99
[2025-05-16 05:02] VITALS: PULSE 72; RESP 22
--- NOTE | 2025-05-16 05:07 | EDRME_ITS ---
Rapid Medical Screening Exam [facility] Arrival date/time: 05/16/25 04:52 Chief Complaint: Headache Vital signs: Vital Signs Temperature 97.5 F 05/16/25 04:54 Pulse Rate 79 05/16/25 04:54 Respiratory Rate 19 05/16/25 04:54 Blood Pressure 180/94 H 05/16/25 04:54 Pulse Oximetry (%) 99 05/16/25 04:54 Oxygen Delivery Method Room Air 05/16/25 04:54 E Narrative: 54-year-old female with history of diabetes hypertension and heart attack in the past but no stroke, presents with left-sided headache radiating to the left arm without associated weakness started at approximately midnight which is 5 hours prior to presentation.
--- NOTE | 2025-05-16 05:08 | XR_ITS ---
Examination: AP chest single view Technique: AP portable semiupright chest single view Date and time: May 16, 2025, 0508 hrs., Comparison February 16, 2024. Indications: Shortness of breath left arm pain beginning 5 hours ago. Findings: Normal heart size Unipolar ventricular lead satisfactory position No lobar pneumonia or pulmonary edema Moderate osteopenia Impression: No lobar pneumonia or pulmonary edema
--- NOTE | 2025-05-16 05:08 | XR_ITS ---
Examination: CT brain head without contrast. 2-D sagittal coronal reconstructions Date and time of exam:May 16, TE thousand and 25, 0553 hrs. Indications: Headaches left-sided body numbness beginning 4 days ago CTDI: vol (mGy):51.8 DLP: (mGycm):984 Technique: Multiple CT axial sections of the brain have been obtained, 5 mm slice thickness. Contrast has not been administered. 2-D sagittal, coronal reconstructions have been obtained Low dose protocols were performed. One or more of the following dose reduction techniques were used; automated exposure control, adjustment of the mA and/or KV according to patient size, use of iterative reconstruction technique. Findings: No significant ventricular enlargement. 20 mm retention cyst in the left maxillary antrum Intra-axial or extra-axial hemorrhage density is not seen. No mass effect or midline shift Basal cisterns are not remarkable. Fourth ventricle is midline. Cranial vault intact. Impression: Negative for acute hemorrhage, mass effect or midline shift As clinically warranted, brain MRI follow-up would best assess for demyelinating disease
--- NOTE | 2025-05-16 05:08 | EKG_ITS ---
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
--- NOTE | 2025-05-16 05:13 | PD.EDADDENDU ---
Emergency Room Addendum Addendum Narrative: Physical exam shows no focal motor deficits. No facial asymmetry. No vision changes. No problems with speech.
[2025-05-16] MEDS: MORPHINE SULF INJ 4 MG/ML VIAL IVP (05:30)
[2025-05-16 05:37] LABS: Basophils # (Auto) 0.0 Thou/mm3 (0.0-0.2); Basophils % (Auto) 0 % (0-2.5); Eosinophils # (Auto) 0.2 Thou/mm3 (0.0-0.5); Eosinophils % (Auto) 2 % (0-10); Hematocrit 33.5 % (36.0-46.0); Hemoglobin 11.2 g/dL (12.0-16.0); Immature Granulocytes Auto 0.02 Thou/mm3 (0.00-0.00); Lymphocytes # (Auto) 2.3 Thou/mm3 (1.0-4.8); Lymphocytes % (Auto) 28 % (10-50); Mean Corpuscular HGB Conc 33.4 g/dl (31.0-37.0); Mean Corpuscular Hemoglobin 27.4 pg (25.0-35.0); Mean Corpuscular Volume 82 fL (80-100); Monocytes # (Auto) 0.6 Thou/mm3 (0.0-0.8); Monocytes % (Auto) 7 % (0-12); Neutrophils # (Auto) 5.0 Thou/mm3 (1.8-7.7); Neutrophils % (Auto) 62 % (37-80); Nucleated Red Blood Cell # 0.00 Thou/mm3 (0.00-0.00); Nucleated Red Blood Cell % 0 /100 WBC (0); Platelet Count 239 Thou/mm3 (140-440); RDW Standard Deviation 38.3 fL (36.4-46.3); Red Blood Count 4.09 Miln/mm3 (4.00-5.20); White Blood Count 8.1 Thou/mm3 (3.6-11.0)
--- NOTE | 2025-05-16 05:52 | PC.NURSE ---
Pt complains of left lower leg pain now. provider Nikolas aware. no new orders at this time
[2025-05-16 06:14] LABS: INR 0.9 (0.9-1.3); Prothrombin Time 9.8 Seconds (9.0-12.2)
--- NOTE | 2025-05-16 06:19 | PC.NURSE ---
Purewick applied to patient, charted in adult shift assessment
[2025-05-16 06:32] LABS: Alanine Aminotransferase 10 U/L (10-49); Albumin, Serum 3.8 gm/dL (3.5-5.0); Albumin/Globulin Ratio 1.6 (1.2-2.2); Alkaline Phosphatase 113 U/L (46-116); Anion Gap 11 (7-16); Aspartate Amino Transferase 11 U/L (0-34); BUN/Creatinine Ratio 23 Ratio (12-20); Bilirubin,Total 0.4 mg/dL (0.3-1.2); Blood Urea Nitrogen 27 mg/dL (9-23); Calcium 9.5 mg/dL (8.3-10.6); Calcium (Corrected) 9.7 mg/dL (8.5-10.1); Carbon Dioxide 23.4 mMol/L (20.0-31.0); Chloride 103 mMol/L (98-107); Creatinine (Component) 1.2 mg/dL (0.6-1.3); Estimated Creatinine Clearance 56.3 mL/min (>60); Globulin 2.4 gm/dL (2.3-3.5); Glucose 330 mg/dL (74-106); Osmolality,Calculated 291 (275-295); Potassium 4.1 mMol/L (3.4-5.1); Sodium 137 mMol/L (136-145); Total Protein 6.2 gm/dL (5.7-8.2); Troponin I < 0.020 ng/mL (0.0-0.045); eGFR 53 See Note
--- NOTE | 2025-05-16 06:46 | PD.EDHA ---
ED Headache RME/HPI General Chief Complaint: Headache Stated Complaint: HEADACHE Time Seen by Provider: 05/16/25 06:02 Arrival date/time: 05/16/25 04:52 RME / HPI RME / HPI Narrative: 54-year-old female with history of diabetes hypertension and heart attack in the past but no stroke, presents with left-sided headache radiating to the left arm without associated weakness started at approximately midnight which is 5 hours prior to presentation. 54-year-old female here for evaluation of headache. States that she has been having some pains to her left hand/wrist radiating to her upper arm with numbness for the past week. Yesterday afternoon she was accidentally hit in the head with a metal pipe that she bumped her head on when standing. Towards about midnight she woke with pains to her left neck up to her head and feels that symptoms are worsening. Some nausea, no vomiting, no diarrhea. No fevers, no other acute symptoms at this time. Related Data Home Medications ?Medication ?Instructions ?Recorded ?Confirmed aspirin 81 mg chewable tablet 81 mg PO 1XD 02/17/24 02/17/24 evolocumab 140 mg/mL subcutaneous 140 mg subcut QWEEK 02/17/24 02/17/24 syringe (Repatha Syringe) finerenone 20 mg tablet (Kerendia) 20 mg PO QDAY 02/17/24 02/17/24 furosemide 40 mg tablet 40 mg PO 1XD 02/17/24 02/17/24 insulin glargine 100 unit/mL (3 50 unit subcut HS 02/17/24 02/17/24 mL) subcutaneous pen (Basaglar KwikPen U-100 Insulin) nitroglycerin 0.4 mg sublingual 0.4 mg buccal 1XD 02/17/24 02/17/24 tablet sacubitril 24 mg-valsartan 26 mg 1 tab PO BID 02/17/24 02/17/24 tablet (Entresto) sitagliptin phosphate 50 50 - 1,000 tab PO 2XD 02/17/24 02/17/24 mg-metformin 1,000 mg tablet (Janumet) Previous Rx's ?Medication ?Instructions ?Recorded amlodipine 5 mg tablet 10 mg (2 x 5 mg) PO QDAY #30 tabs 02/18/24 apixaban 2.5 mg tablet (Eliquis) 5 mg (2 x 2.5 mg) PO BID #60 tabs 02/18/24 atorvastatin 20 mg tablet 40 mg (2 x 20 mg) PO HS #30 tabs 02/18/24 carvedilol 3.125 mg tablet 3.125 mg PO BIDWM #60 tabs 02/18/24 cephalexin 500 mg capsule 500 mg PO TID #20 caps 10/25/24 tramadol 50 mg tablet 50 mg PO Q8H PRN pain #14 tabs 11/30/24 acetaminophen 300 mg-codeine 30 mg 1 tab PO Q6H PRN pain #14 tabs 05/16/25 tablet cyclobenzaprine 10 mg tablet 10 mg PO TID PRN muscle spasm #14 05/16/25 tabs Allergies Allergy/AdvReac Type Severity Reaction Status Date / Time Penicillins Allergy Severe Swelling Verified 11/30/24 15:51 Review of Systems Review of Systems Systems Reviewed: All systems reviewed, normal except as documented Past Medical History Past Medical History Comments PMH COMMENT: Significant for CAD, diabetes, hypertension ED Exam Narrative Physical exam: Constitutional: Awake, alert, nontoxic, uncomfortable, in pain. HEENT: Normocephalic, atraumatic, extraocular movements intact. Neck: Pain to palpation of left lateral aspect of neck extending to nearly entire region of trapezius left side. Decreased range of motion due to pain. CV: Regular rate and rhythm, no murmurs/rubs/gallops Lungs: Clear to auscultation BL, no respiratory distress. Abd: Soft, mild discomfort to palpation of abdomen in general, no rebound or guarding noted. Nondistended. Extremities: No deformities, no edema noted Neuro: AAOx3, CN 2-12 GIBL, no acute neuro deficit noted. Skin: Warm, dry, intact Course Course Course Narrative: 1005h: Checked on patient, some improvement in symptoms. CT and labs generally unremarkable. Patient is vitally stable at this time. Pain is located mainly to the lateral aspect of neck on the left as well as the distribution of the trapezius muscle. Likely trapezius spasm as cause of pain. No indication for further emergent workup at this time. Advised on symptomatic treatment for home over the next few days and follow-up with PCP as needed. Return precautions advised for any worsening symptoms. Stable for discharge. Quality Measures none Orders Category Date Time Status EKG (ED ONLY) *Do not use* NOW Care 05/16/25 05:[address] head/brain wo con Stat Exams 05/16/25 05:08 Completed EKG (ED Only) Stat Exams 05/16/25 05:08 Draft XR chest 1V portable Stat Exams 05/16/25 05:08 Completed CBC Stat Lab 05/16/25 05:20 Completed CMP [Comprehensive Metabolic Panel] Stat Lab 05/16/25 05:20 Completed PT [Prothrombin Time with INR] Stat Lab 05/16/25 05:20 Completed Troponin I Stat Lab 05/16/25 05:20 Completed Acetaminophen Ivpb [Ofirmev Inj] Med 05/16/25 06:43 Discontinued 1,000 mg in 100 ml IV NOW DiphenhydrAMINE INJ [Benadryl Inj] Med 05/16/25 06:43 Discontinued 25 mg IVP X1 ONE Ketorolac Inj [Toradol Inj] Med 05/16/25 06:43 Discontinued 15 mg IVP X1 ONE Metoclopramide Inj [Reglan Inj] Med 05/16/25 06:43 Discontinued 10 mg IVP X1 ONE Morphine* Inj Med 05/16/25 05:12 Discontinued 4 mg IVP X1 ONE Vital Signs Vital signs: Vital Signs Temperature 97.5 F 05/16/25 04:54 Pulse Rate 79 05/16/25 04:54 Respiratory Rate 19 05/16/25 04:54 Blood Pressure 180/94 H 05/16/25 04:54 Pulse Oximetry (%) 99 05/16/25 04:54 Oxygen Delivery Method Room Air 05/16/25 04:54 Headache Patient data External records reviewed:: [facility] previous records Clinical information provided by:: patient and family Social determinants that could affect healthcare access:: none Patient has the following chronic illnesses:: Diabetes, CAD How is presenting disease/condition affected by chronic disease/condition?: uneffected by Evaluation data The following diagnostics were reviewed and interpreted by me:: lab results, radiology exam(s) and EKG tracing(s) Lab and/or radiology exams considered but not ordered:: None Interpretation Summary: Laboratory Results WBC 8.1 Thou/mm3 (3.6-11.0) 05/16/25 05:20 RBC 4.09 Miln/mm3 (4.00-5.20) 05/16/25 05:20 Hgb 11.2 g/dL (12.0-16.0) L 05/16/25 05:20 Hct 33.5 % (36.0-46.0) L 05/16/25 05:20 MCV 82 fL (80-100) 05/16/25 05:20 MCH 27.4 pg (25.0-35.0) 05/16/25 05:20 MCHC 33.4 g/dl (31.0-37.0) 05/16/25 05:20 RDW Std Deviation 38.3 fL (36.4-46.3) 05/16/25 05:20 Plt Count 239 Thou/mm3 (140-440) 05/16/25 05:20 Neut % (Auto) 62 % (37-80) 05/16/25 05:20 Lymph % (Auto) 28 % (10-50) 05/16/25 05:20 [place] % (Auto) 7 % (0-12) 05/16/25 05:20 Eos % (Auto) 2 % (0-10) 05/16/25 05:20 Baso % (Auto) 0 % (0-2.5) 05/16/25 05:20 Neut # (Auto) 5.0 Thou/mm3 (1.8-7.7) 05/16/25 05:20 Lymph # (Auto) 2.3 Thou/mm3 (1.0-4.8) 05/16/25 05:20 [place] # (Auto) 0.6 Thou/mm3 (0.0-0.8) 05/16/25 05:20 Eos # (Auto) 0.2 Thou/mm3 (0.0-0.5) 05/16/25 05:20 Baso # (Auto) 0.0 Thou/mm3 (0.0-0.2) 05/16/25 05:20 Immature Gran # (Auto) 0.02 Thou/mm3 (0.00-0.00) H 05/16/25 05:20 Absolute Nucleated RBC 0.00 Thou/mm3 (0.00-0.00) 05/16/25 05:20 Immature Gran % 0 % (0-0) 05/16/25 05:20 Nucleated RBC % 0 /100 WBC (0) 05/16/25 05:20 PT 9.8 Seconds (9.0-12.2) 05/16/25 05:20 INR 0.9 (0.9-1.3) 05/16/25 05:20 Sodium 137 mMol/L (136-145) 05/16/25 05:20 Potassium 4.1 mMol/L (3.4-5.1) 05/16/25 05:20 Chloride 103 mMol/L (98-107) 05/16/25 05:20 Carbon Dioxide 23.4 mMol/L (20.0-31.0) 05/16/25 05:20 Anion Gap 11 (7-16) 05/16/25 05:20 BUN 27 mg/dL (9-23) H 05/16/25 05:20 Creatinine 1.2 mg/dL (0.6-1.3) 05/16/25 05:20 Estim Creat Clear Calc 56.3 mL/min (>60) L 05/16/25 05:20 eGFR 53 See Note (60-) L 05/16/25 05:20 BUN/Creatinine Ratio 23 Ratio (12-20) H 05/16/25 05:20 Glucose 330 mg/dL (74-106) H 05/16/25 05:20 Calculated Osmolality 291 (275-295) 05/16/25 05:20 Calcium 9.5 mg/dL (8.3-10.6) 05/16/25 05:20 Corrected Calcium 9.7 mg/dL (8.5-10.1) 05/16/25 05:20 Total Bilirubin 0.4 mg/dL (0.3-1.2) 05/16/25 05:20 AST 11 U/L (0-34) 05/16/25 05:20 ALT 10 U/L (10-49) 05/16/25 05:20 Alkaline Phosphatase 113 U/L (46-116) 05/16/25 05:20 Troponin I < 0.020 ng/mL (0.0-0.045) 05/16/25 05:20 Total Protein 6.2 gm/dL (5.7-8.2) 05/16/25 05:20 Albumin 3.8 gm/dL (3.5-5.0) 05/16/25 05:20 Globulin 2.4 gm/dL (2.3-3.5) 05/16/25 05:20 Albumin/Globulin Ratio 1.6 (1.2-2.2) 05/16/25 05:20 CT brain head without contrast. 2-D sagittal coronal reconstructions Date and time of exam:May 16, TE thousand and , 0553 hrs. Indications: Headaches left-sided body numbness beginning 4 days ago CTDI: vol (mGy):51.8 DLP: (mGycm):984 Technique: Multiple CT axial sections of the brain have been obtained, 5 mm slice thickness. Contrast has not been administered. 2-D sagittal, coronal reconstructions have been obtained Low dose protocols were performed. One or more of the following dose reduction techniques were used; automated exposure control, adjustment of the mA and/or KV according to patient size, use of iterative reconstruction technique. Findings: No significant ventricular enlargement. 20 mm retention cyst in the left maxillary antrum Intra-axial or extra-axial hemorrhage density is not seen. No mass effect or midline shift Basal cisterns are not remarkable. Fourth ventricle is midline. Cranial vault intact. Impression: Negative for acute hemorrhage, mass effect or midline shift As clinically warranted, brain MRI follow-up would best assess for demyelinating disease Medications / Prescriptions Medications or Prescriptions considered but not ordered:: none Medication administrations:: Medication Administration History Discontinued Medications Diphenhydramine HCl (Diphenhydramine Inj 50 Mg/Ml Vial) 25 mg IVP X1 ONE Stop: 05/16/25 06:44 Last Admin: 05/16/25 06:52 Dose: 25 mg Documented By: PINOR Acetaminophen (Ofirmev Inj) 1,000 mg in 100 mls @ 250 mls/hr IV NOW ONE Stop: 05/16/25 07:06 Last Infusion: 05/16/25 07:30 Dose: Infused Documented By: Admin: 05/16/25 06:51 Dose: 250 mls/hr Documented By: PINOR Ketorolac Tromethamine (Ketorolac Inj 30 Mg/Ml Vial) 15 mg IVP X1 ONE Stop: 05/16/25 06:44 Last Admin: 05/16/25 06:54 Dose: 15 mg Documented By: PINOR Metoclopramide HCl (Metoclopramide Inj 5 Mg/Ml Vial 2 Ml) 10 mg IVP X1 ONE; Protocol Stop: 05/16/25 06:44 Last Admin: 05/16/25 06:54 Dose: 10 mg Documented By: RAISA Morphine Sulfate (Morphine Sulf Inj 4 Mg/Ml Vial) 4 mg IVP X1 ONE Stop: 05/16/25 05:13 Last Admin: 05/16/25 05:30 Dose: 4 mg Documented By: RAISA as above Consultations Consultation(s) initiated? (list below): No Diagnosis Differential diagnosis headache: migraine, tension headache, subarachnoid hemorrhage and headache Most likely diagnosis given after review of the tests above:: Trapezius spasm, headache Admission Indicated Admission indicated?: not indicated Admission Request Was there a request for admission?: No Disposition Plan Disposition Plan: Discharge Discharge Attestation Discharge Attestation: The patient and all family members were given an opportunity to ask questions and understood the discharge instructions. Discharge instructions specifically effects, indications for sooner follow up or return to the emergency department, and the expected course of current diagnosis. Patient condition: Stable Discharge Plan Plan Patient Disposition: HOME (Self Care) Patient condition on transfer: Stable Prescriptions/Referrals Prescriptions/Med Rec: New cyclobenzaprine 10 mg tablet 10 mg PO TID PRN (Reason: muscle spasm) Qty: 14 0RF acetaminophen-codeine 300-30 mg tablet 1 tab PO Q6H PRN (Reason: pain) Qty: 14 0RF No Action furosemide 40 mg tablet 40 mg PO 1XD nitroglycerin 0.4 mg Tablet, Sublingual 0.4 mg BUCCAL 1XD aspirin 81 mg tablet,chewable 81 mg PO 1XD Janumet 50-1,000 mg tablet 50 - 1,000 tab PO 2XD Entresto 24-26 mg Tablet 1 tab PO BID insulin glargine [Basaglar KwikPen U-100 Insulin] 100 unit/mL (3 mL) insulin pen 50 unit SUBCUT HS Kerendia 20 mg tablet 20 mg PO QDAY Patient Comments: TOME 1 TABLETA POR V A ORAL TODOS LOS D Repatha Syringe 140 mg/mL syringe 140 mg SUBCUT QWEEK atorvastatin 20 mg Tablet 40 mg PO HS Qty: 30 0RF amlodipine 5 mg Tablet 10 mg PO QDAY Qty: 30 0RF carvedilol 3.125 mg Tablet 3.125 mg PO BIDWM Qty: 60 0RF Eliquis 2.5 mg Tablet 5 mg PO BID Qty: 60 0RF cephalexin 500 mg capsule 500 mg PO TID Qty: 20 0RF tramadol 50 mg tablet 50 mg PO Q8H PRN (Reason: pain) Qty: 14 0RF Referrals: No Primary/Family,Physician [Primary Care Provider] - In 1 week Problem List Clinical Impression: Spasm of left trapezius muscle, Headache Patient/Caregiver Discharge Instructions Education Materials: Self-Care for Headaches, ED Muscle Spasm Additional Instructions: You can use as well [place] balm ointment or patches to affected area as needed for pain. Some general health principles that can help you are the [employer] principles: Nutrition (plant-based diet, avoiding meats in general, avoiding more processed foods) Exercise (Daily exercise/walks as tolerated) Water (Drink adequate fresh water to maintain hydration, concentrating on water rather than on soda, coffee, tea, juice, etc for hydration) [place] (Spend time - 15-20 minutes or so with skin exposed in the larry car operator and late evening sun for Vitamin D health benefits) [place] (Avoid alcohol, illicit drugs, caffeinated beverages, smoking, etc) Air (Deep breathing exercises in the early mornings in fresh air) Rest (Adequate rest at night, going to bed a few hours before midnight and avoiding all screens/television/loud music in the time right before going to bed, also avoiding heavy meals just prior to going to bed) Trust in God (Spend time daily in Bible study and prayer - health benefits in contemplation of God's true character) Additional resources that can benefit: www.[employer]Foruforever, look under resources and seminars. Print Language: Nigerien Stand Alone Forms: [employer] Info., Work/School Release, Patient Portal Info Letter
[2025-05-16] MEDS: ACETAMINOPHEN IVPB 1,000 MG/100 ML VIAL 250 MG IV (06:51)
[2025-05-16] MEDS: METOCLOPRAMIDE INJ 5 MG/ML VIAL 2 ML 10 MG IVP (06:54)
[2025-05-16] MEDS: KETOROLAC INJ 30 MG/ML VIAL 15 MG IVP (06:54)
[2025-05-16 07:52] VITALS: BP 157/99; PULSE 85; RESP 19; TEMP 36.7; O2SAT 96
--- NOTE | 2025-05-16 09:00 | PC.NURSE ---
Pt. here from home to room 10, pt.'s daughter is bedside, pt. states she started having pain to the back of her neck and the back of her shoulders at 0000 last night. Pt. states she can't move her head because it hurts. Pt. denies any SOTO at this time, pt. denies any fall or injury. Pt.'s daughter states pt. is feeling better since she received the medication.
[2025-05-16 11:49] VITALS: BP 141/83; PULSE 76; RESP 17; TEMP 36.8; O2SAT 97
== END 2025-05-16 11:53 | disposition home or self-care (01) ==
PROVIDERS: Emergency Medicine; Emergency Provider Family Medicine
DX: M62.830 Muscle spasm of back (principal); R51.9 Headache, unspecified; E11.9 Type 2 diabetes mellitus without complications; I10 Essential (primary) hypertension; I25.10 Atherosclerotic heart disease of native coronary artery without angina pectoris
CPT/HCPCS: 36415; 70450; 71045; 80053; 84484; 85025; 85610; 93005; 96365; 96375; 99284; J0131; J1200; J1885; J2270; J2765